=== PATIENT | female | born 1975 | race Caucasian/White ===

== ENCOUNTER 2020-05-31 08:57 | Emergency (ER) | payer OTHER ==
[2020-05-31] MEDS ORDERED: CYCLOBENZAPRINE10 MG PO (10:44)
== END 2020-05-31 11:10 | disposition home or self-care (01) ==
LOC: FER 08:57
DX: T14.8XXA Other injury of unspecified body region, initial encounter (principal); R07.9 Chest pain, unspecified; M25.512 Pain in left shoulder; I10 Essential (primary) hypertension; Z88.2 Allergy status to sulfonamides; V43.52XA Car driver injured in collision with other type car in traffic accident, initial encounter; Y92.410 Unspecified street and highway as the place of occurrence of the external cause
CPT/HCPCS: 99283

== ENCOUNTER 2020-06-07 09:44 | Emergency (ER) | payer OTHER ==
[~2020-06-07 09:44] MED LIST: CYCLOBENZAPRINE10 MG PO
== END 2020-06-07 11:53 | disposition home or self-care (01) ==
LOC: FER 09:44
DX: S13.4XXA Sprain of ligaments of cervical spine, initial encounter (principal); S33.5XXA Sprain of ligaments of lumbar spine, initial encounter; R20.2 Paresthesia of skin; F17.210 Nicotine dependence, cigarettes, uncomplicated; V49.40XA Driver injured in collision with unspecified motor vehicles in traffic accident, initial encounter; Y92.410 Unspecified street and highway as the place of occurrence of the external cause
CPT/HCPCS: 72040; 72100; J1885

== ENCOUNTER 2020-06-12 23:30 | Emergency (ER) | payer OTHER ==
[2020-06-13] MEDS ORDERED: MOTRIN600 MG PO (00:41)
== END 2020-06-13 00:53 | disposition home or self-care (01) ==
LOC: FER 23:30
DX: S92.421A Displaced fracture of distal phalanx of right great toe, initial encounter for closed fracture (principal); I10 Essential (primary) hypertension; F41.9 Anxiety disorder, unspecified; K21.9 Gastro-esophageal reflux disease without esophagitis; Z87.39 Personal history of other diseases of the musculoskeletal system and connective tissue; Z88.2 Allergy status to sulfonamides; Z79.899 Other long term (current) drug therapy; W01.0XXA Fall on same level from slipping, tripping and stumbling without subsequent striking against object, initial encounter; Y92.009 Unspecified place in unspecified non-institutional (private) residence as the place of occurrence of the external cause
CPT/HCPCS: 73630; J1885

== ENCOUNTER 2020-12-23 11:56 | Emergency (ER) | payer OTHER ==
[~2020-12-23 11:56] MED LIST changes: +MOTRIN600 MG PO
== END 2020-12-23 15:08 | disposition home or self-care (01) ==
LOC: FER 11:56
DX: M25.471 Effusion, right ankle (principal); E78.5 Hyperlipidemia, unspecified; I10 Essential (primary) hypertension; K21.9 Gastro-esophageal reflux disease without esophagitis; F17.210 Nicotine dependence, cigarettes, uncomplicated; Z88.1 Allergy status to other antibiotic agents; Z88.5 Allergy status to narcotic agent
CPT/HCPCS: 73610; J1885